=== PATIENT | male | born 1995 | race African-American/Black ===

== ENCOUNTER 2018-09-14 13:45 | Emergency (ER) | payer OTHER ==
[~2018-09-14] VITALS: Ht 177.8 cm; Wt 102.1 kg
[2018-09-14] MEDS ORDERED: CYCLOBENZAPRINE5 MG PO (15:12)
[2018-09-14] MEDS ORDERED: BUTALB-APAP-CA1 EACH PO (15:12)
[2018-09-14 15:33] VITALS: BP 134/73
== END 2018-09-14 15:15 | disposition home or self-care (01) ==
LOC: ER 13:45
DX: S09.8XXA Other specified injuries of head, initial encounter (principal); M25.511 Pain in right shoulder; V49.59XA Passenger injured in collision with other motor vehicles in traffic accident, initial encounter; Y93.89 Activity, other specified; Y92.89 Other specified places as the place of occurrence of the external cause; Y99.8 Other external cause status